=== PATIENT | male | born 1970 | race Two or more races ===

== ENCOUNTER 2017-11-15 19:09 | Emergency (ER) | payer SELFPAY, BC ==
[2017-11-15 19:52] LABS: ADD MAN DIFF? NO
[2017-11-15 19:54] LABS: BASO % 1 % (0-3); EOS # 0.2 x10^3/uL (0.0-0.7); EOS % 3 % (0-3); HEMATOCRIT 42.5 % (39.0-53.0); LYMPH # 2.2 x10^3/uL (1.0-4.8); LYMPH % 34 % (24-48); MEAN CORPUSCULAR HEMOGLOBIN 28 pg (25-35); MEAN CORPUSCULAR HGB CONC 35 g/dL (31-37); MEAN CORPUSCULAR VOLUME 80 fL (79-100); MONO # 0.8 x10^3/uL (0.0-1.1); MONO % 12 % (0-9); NEUT # 3.4 x10^3uL (1.8-7.7); NEUT % 51 % (31-73); PLATELET COUNT 228 x10^3/uL (140-400); RED BLOOD COUNT 5.31 x10^6/uL (4.30-5.70); RED CELL DISTRIBUTION WIDTH 12.6 % (11.5-14.5); WHITE BLOOD COUNT 6.6 x10^3/uL (4.0-11.0)
[2017-11-15 19:57] LABS: BILIRUBIN,URINE NEGATIVE (NEG); CLARITY,URINE CLEAR; GLUCOSE,URINE NEGATIVE (NEG); NITRITE,URINE NEGATIVE (NEG); PROTEIN,URINE NEGATIVE (NEG-TRACE); UROBILINOGEN,URINE 0.2 mg/dL (0.2 mg/dL)
[2017-11-15 20:08] LABS: ANION GAP 8 (6-14); BLOOD UREA NITROGEN 19 mg/dL (8-26); BUN/CREATININE RATIO 19 (6-20); CARBON DIOXIDE 28 mmol/L (21-32); CHLORIDE 107 mmol/L (98-107); GFR 79.8; GLUCOSE 93 mg/dL (70-99); POTASSIUM 3.6 mmol/L (3.5-5.1); SODIUM 143 mmol/L (136-145)
[2017-11-15 20:14] LABS: ALBUMIN/GLOBULIN RATIO 1.1 (1.0-1.7); ALK PHOS 95 U/L (46-116); ALT (SGPT) 31 U/L (16-63); AST (SGOT) 35 U/L (15-37); TOTAL BILIRUBIN 0.3 mg/dL (0.2-1.0); TOTAL PROTEIN 7.6 g/dL (6.4-8.2)
[2017-11-15 20:23] LABS: BACTERIA,URINE 0 /HPF (0-FEW); COLOR,URINE STRAW; RBC,URINE OCC /HPF (0-2); SQUAMOUS EPITHELIAL CELL,UR OCC /LPF; WBC,URINE OCC /HPF (0-4)
== END 2017-11-15 21:05 | disposition home or self-care (01) ==
LOC: ER 19:09
DX: R10.31 Right lower quadrant pain (principal); R39.15 Urgency of urination; M54.5 Low back pain; G89.29 Other chronic pain
CPT/HCPCS: 36415; 74176; 80053; 81001; 85025; 99285-25